=== PATIENT | male | born 1965 | race Caucasian/White ===

== ENCOUNTER 2020-06-27 07:46 | Outpatient (CLI) | payer MEDICARE ==
--- NOTE | 2020-06-27 08:03 | RAD ---
LEFT SHOULDER 3 VIEWS: Date: 06/27/2020 HISTORY: Left shoulder pain. FINDINGS/IMPRESSION: No acute fracture, dislocation, or bony destruction seen. There are old left rib fractures. There are postop changes and metallic hardware in the cervical and thoracic spine. POS: OFF
== END 2020-06-27 07:47 | disposition home or self-care (01) ==
LOC: RAD-FRANK 07:46
PROVIDERS: ATTEND Nurse Practitioner Family
DX: M25.512 Pain in left shoulder (principal); Z98.890 Other specified postprocedural states

== ENCOUNTER 2020-06-27 11:12 | Outpatient (CLI) | payer MEDICARE ==
--- NOTE | 2020-06-27 13:43 | CT ---
EXAM: CT left shoulder without contrast PROVIDED CLINICAL HISTORY: Pain status post injury COMPARISON: None FINDINGS: There is no evidence for fracture or other acute osseous abnormality. The glenohumeral relationship a ppears normal. Acromioclavicular distances upper limits normal. No surrounding soft tissue stranding or other findings to suggest acute acromial clavicular joint injury. There is a moderate glenohumeral joint effusion. There is narrowing of the subacromial space and mild muscular volume loss involving the supraspinatus and infraspinatus muscles. The visualized left lung field appears free of significant opacity. Partially visualized hiatal herni a. Postoperative changes are seen involving the thoracic spine. Partially visualized left-sided healed rib fractures. IMPRESSION: 1. No evidence for fracture or dislocation. 2. Moderate glenohumeral joint effusion and findings suggesting rotator cuff insufficiency. Consider correlation with MRI.
== END 2020-06-27 11:13 | disposition home or self-care (01) ==
LOC: CT 11:12
PROVIDERS: ATTEND Nurse Practitioner Family
DX: M25.512 Pain in left shoulder (principal); M25.412 Effusion, left shoulder; Z98.890 Other specified postprocedural states

== ENCOUNTER 2020-07-16 07:40 | Outpatient (CLI) | payer MEDICARE | END 2020-07-16 07:41 | disposition home or self-care (01) | LOC: TBSIIMAG 07:40 | PROVIDERS: ATTEND Orthopaedic Surgery | DX: M12.812 Other specific arthropathies, not elsewhere classified, left shoulder (principal); M75.122 Complete rotator cuff tear or rupture of left shoulder, not specified as traumatic; M25.462 Effusion, left knee ==

== ENCOUNTER 2021-05-30 13:45 | Emergency (ER) | payer MEDICARE | END 2021-05-30 18:37 | disposition left against medical advice (07) | LOC: ERS 13:45 | DX: Z53.21 Procedure and treatment not carried out due to patient leaving prior to being seen by health care provider (principal) | CPT/HCPCS: 70450; 72125; 72128; 72131 ==